=== PATIENT | female | born 1985 | race Caucasian/White ===

== ENCOUNTER 2023-10-09 18:23 | Emergency (ER) | payer OTHER ==
[~2023-10-09] VITALS: Ht 165.1 cm; Wt 83.9 kg
[2023-10-09 18:42] LABS: BASOPHILS # (AUTO) 0.1 (0.0-0.1); BASOPHILS % 1.2 % (0.0-1.0); EOSINOPHILS # (AUTO) 0.1 (0.0-0.4); EOSINOPHILS % 0.8 % (0.0-6.0); HEMATOCRIT 43.5 % (34.2-44.1); HEMOGLOBIN 15.2 g/dL (12.0-16.0); LYMPHOCYTES # (AUTO) 4.5 (1.0-3.2); LYMPHOCYTES % 38.7 % (18.0-39.1); MEAN CORPUSCULAR HEMOGLOBIN 34.3 pg (28-32); MEAN CORPUSCULAR HGB CONC 34.9 g/dL (31-35); MEAN CORPUSCULAR VOLUME 98.2 fL (81-99); MONOCYTES % 8.7 % (4.4-11.3); NEUTROPHILS # (AUTO) 5.9 (2.1-6.9); NEUTROPHILS % 50.3 % (38.7-80.0); PLATELET COUNT 262 x10e3/uL (140-360); RED BLOOD COUNT 4.43 x10e6/uL (3.6-5.1); RED CELL DISTRIBUTION WIDTH 13.4 % (11.7-14.4); WHITE BLOOD COUNT 11.65 x10e3/uL (4.8-10.8)
[2023-10-09 18:45] LABS: BILIRUBIN,URINE NEGATIVE (NEGATIVE); CLARITY,URINE SL CLOUDY (CLEAR); COLOR,URINE YELLOW (YELLOW); GLUCOSE, URINE NEGATIVE (NEGATIVE); KETONES,URINE NEGATIVE (NEGATIVE); LEUKOCYTE ESTERASE ,URINE TRACE (NEGATIVE); NITRITE,URINE NEGATIVE (NEGATIVE); PH,URINE 7 (5 - 7); PROTEIN,URINE DIPSTICK NEGATIVE (NEGATIVE); URINE UROBILINOGEN 0.2 mg/dL (0.2 - 1)
[2023-10-09 18:47] LABS: PREGNANCY TEST, URINE NEGATIVE (NEGATIVE)
[2023-10-09 18:49] LABS: AMPHETAMINES SCREEN,URINE NEGATIVE (NEGATIVE); BENZODIAZEPINES SCREEN,URINE POSITIVE (NEGATIVE); CANNABINOIDS SCREEN,URINE NEGATIVE (NEGATIVE); METHADONE SCREEN, URINE NEGATIVE (NEGATIVE); OPIATES SCREEN,URINE NEGATIVE (NEGATIVE); PHENCYCLIDINE SCREEN,URINE NEGATIVE (NEGATIVE)
[2023-10-09 18:56] LABS: WBC,URINE (MAN) 0-5 /HPF (0-5)
[2023-10-09 18:57] LABS: BACTERIA,URINE MODERATE /HPF; EPITHELIAL CELLS,URINE MODERATE /LPF; RBC,URINE 0-5 /HPF (0-5)
[2023-10-09 19:02] LABS: ALANINE AMINOTRANSFERASE 20 IU/L (0-55); ALBUMIN 3.9 g/dL (3.5-5.0); ALKALINE PHOSPHATASE 78 IU/L (40-150); ANION GAP 14.3 mmol/L (8-16); BILIRUBIN,TOTAL 0.4 mg/dL (0.2-1.2); BLOOD UREA NITROGEN 8 mg/dL (7-26); BUN/CREATININE RATIO 10 (6-25); CALCIUM 9.5 mg/dL (8.4-10.2); CARBON DIOXIDE 24 mmol/L (22-29); CHLORIDE 103 mmol/L (98-107); CREATINE KINASE 159 IU/L (29-168); EST GLOMERULAR FILTRATION RATE 97 ML/MIN (>=60); GLUCOSE 103 mg/dL (74-118); SODIUM 138 mmol/L (136-145); TOTAL PROTEIN 7.7 g/dL (6.5-8.1)
[2023-10-09 19:11] LABS: POTASSIUM 3.3 mmol/L (3.5-5.1); TROPONIN I < 0.001 ng/mL (0-0.300)
[2023-10-09] MEDS: DIAZEPAM INJ 5 MG/ML 2 ML IV ONE (19:11)
[2023-10-09] MEDS: SODIUM CHLORIDE 0.9% 1000ML 3,000 ML IV STA (19:11)
[2023-10-09 19:13] LABS: ETHANOL 279.7 mg/dL (0.0-10.0)
[2023-10-09] MEDS: FAMOTIDINE 20 MG/2 ML VIAL IV STA (22:16)
[2023-10-09] MEDS ORDERED: FAMOTIDINE 20 MG/2 ML VIAL IV ONE (22:18)
[2023-10-10 00:07] VITALS: PULSE 96; RESP 20; TEMP 98.4
[2023-10-10] MEDS ORDERED: CHLORDIAZEPOXID25 MG PO (01:36)
[2023-10-10 01:38] VITALS: BP 110/68; PULSE 96; RESP 20; TEMP 98.4; O2SAT 99
== END 2023-10-10 01:59 | disposition home or self-care (01) ==
LOC: ER 18:25
DX: F10.129 Alcohol abuse with intoxication, unspecified (principal); I10 Essential (primary) hypertension; F17.210 Nicotine dependence, cigarettes, uncomplicated
CPT/HCPCS: 36415; 71045; 80053; 80307; 80320; 81001; 81025; 82550; 83690; 83880; 84484; 85025; 99284; J3360; J7030; U0002

== ENCOUNTER 2024-03-12 18:44 | Emergency (ER) | payer OTHER ==
[~2024-03-12] VITALS: Ht 165.1 cm; Wt 83.9 kg
[~2024-03-12 18:44] MED LIST: CHLORDIAZEPOXID25 MG PO
[2024-03-12 18:50] VITALS: PULSE 85; RESP 19; TEMP 97.2
[2024-03-12] MEDS: ONDANSETRON HCL INJ 2MG/ML 2ML 2 MG/ML VIAL IV ONE (19:53)
[2024-03-12] MEDS: DICYCLOMINE HCL 20 MG/2 ML VIAL IM ONE (19:53)
[2024-03-12] MEDS: FAMOTIDINE 20 MG/2 ML VIAL IV ONE (19:53)
[2024-03-12] MEDS: KETOROLAC TROMETHAMINE 30 MG/ML VIAL IV ONE (19:54)
[2024-03-12] MEDS: LACTATED RINGER'S 1,000 ML INJ ONE (19:55)
[2024-03-12] MEDS: LORAZEPAM INJ 2 MG/ML VIAL IV ONE (19:55)
[2024-03-12] MEDS ORDERED: MAALOX MAXIMUM355 ML PO (20:27)
[2024-03-12] MEDS ORDERED: OMEPRAZOLE40 MG PO (20:27)
[2024-03-12] MEDS ORDERED: DICYCLOMINE HCL20 MG PO (20:27)
[2024-03-12] MEDS ORDERED: ONDANSETRON ODT4 MG PO (20:27)
[2024-03-12] MEDS ORDERED: CHLORDIAZEPOXID25 MG PO (20:27)
[2024-03-12] MEDS ORDERED: DISULFIRAM250 MG PO (20:38)
[2024-03-12] MEDS ORDERED: CEFDINIR300 MG PO (20:38)
[2024-03-12 20:49] VITALS: BP 165/78; PULSE 71; RESP 16; TEMP 97.6; O2SAT 98
== END 2024-03-12 20:42 | disposition home or self-care (01) ==
LOC: FSED 19:04
DX: R11.2 Nausea with vomiting, unspecified (principal); K29.20 Alcoholic gastritis without bleeding; R10.13 Epigastric pain; F10.20 Alcohol dependence, uncomplicated; N39.0 Urinary tract infection, site not specified
CPT/HCPCS: 93005; 99284; J0696; J1885; J2060; J2405

== ENCOUNTER 2024-09-08 01:17 | Emergency (ER) | payer SELFPAY ==
[~2024-09-08 01:17] MED LIST changes: +CEFDINIR300 MG PO; +DICYCLOMINE HCL20 MG PO; +DISULFIRAM250 MG PO; +MAALOX MAXIMUM355 ML PO; +OMEPRAZOLE40 MG PO; +ONDANSETRON ODT4 MG PO
== END 2024-09-08 01:28 | disposition short-term general hospital (02) ==
LOC: FSED 01:27
DX: F10.129 Alcohol abuse with intoxication, unspecified (principal)